=== PATIENT | male | born 1965 | race Caucasian/White ===

== ENCOUNTER → 2018-03-25 | Outpatient (CLI) | payer BC ==
--- NOTE | 2018-03-25 21:55 | MR ---
EXAMINATION TYPE: MR knee RT wo con DATE OF EXAM: 03/25/2018 COMPARISON: Outside radiograph 12/17/2017 and on MRI 09/19/2014 HISTORY: 53-year-old male Right knee pain TECHNIQUE: Multiplanar, multisequence imaging of the right knee is performed without IV contrast. FINDINGS: ACL, PCL, and MCL are intact. There is some increased fluid signal tracking along the myotendinous ju nction of the popliteus tendon but this appearance is unchanged from 09/19/2014. LCL complex is otherw ise intact. Extensive degenerative signal in both medial and lateral menisci are redemonstrated. Signal seems to extend to the articular surface along the posterior horn of the lateral meniscus, sagittal PD FS imag e 23, and at the junction of the posterior horn and body of the medial meniscus, sagittal PD FS image 6. However, this is only seen on single images. No displaced meniscal fragment. Mild to moderate irregular cartilage loss focally along the weightbearing posterior lateral tibial pl ateau, coronal PD FS image 23. Admission, very similar moderate to severe irregular cartilage loss along the inferior half of both m edial and lateral patellar facets and moderate irregular cartilage thinning along the inferior half. Trochlear articular cartilage is largely maintained Intermediate/borderline increased T2-TG distance of nearly 2 cm and congenital patella ramiro with anaya llar height ratio of 1.6 (normal <1.3). There is redemonstrated severe tendinosis of the quadriceps i nsertion with areas of complex partial thickness tearing of the middle third fibers. This overall tank earance is similar to 2015. No significant knee joint effusion. No Ghosh's cyst. Normal popliteal artery anatomy and muscle bulk. No suspicious bone marrow placement. IMPRESSION: 1. Moderate overall patellofemoral compartment osteoarthrosis with moderate to severe irregular carti sarah loss especially along the inferior half of the patella. Overall trochlear articular cartilage is maintained. Similar as compared to 2014. 2. Mild to moderate irregular cartilage loss focally along the posterior weightbearing aspect of the lateral tibial plateau. 3. Extensive degenerative signal within both menisci redemonstrated. An area along the posterior horn s of both menisci show signal extending to the articular surface only on one image and may represent small meniscal tears. No sizable tear or displaced meniscal fragment. 4. Moderate to severe insertional quadriceps tendinosis with partial-thickness tearing of the middle third fibers. This is relatively similar to 2015. 5. Similar interstitial tearing along the myotendinous junction of the popliteus. 6. Congenital puckett la ramiro and borderline increased TT-TG distance can contribute to patellar instability and patellar t racking disorder.
== END | disposition home or self-care (01) ==
LOC: RADMRIMAIN 06:14
PROVIDERS: ATTEND Orthopaedic Surgery
DX: M17.11 Unilateral primary osteoarthritis, right knee (principal); M94.8X6 Other specified disorders of cartilage, lower leg; M67.863 Other specified disorders of tendon, right knee; M22.2X1 Patellofemoral disorders, right knee

== ENCOUNTER → 2018-04-19 | Outpatient (CLI) | payer BC ==
[2018-04-19 15:28] LABS: Basophils % (A) 1 %; Eosinophils # (A) 0.1 k/uL (0-0.7); Eosinophils % (A) 2 %; HCT 44.2 % (39.0-53.0); HGB 14.6 gm/dL (13.0-17.5); Lymphocytes % (A) 30 %; MCH 30.1 pg (25.0-35.0); MCHC 33.1 g/dL (31.0-37.0); MCV 90.9 fL (80.0-100.0); Mean Platelet Volume 6.4; Monocytes # (A) 0.3 k/uL (0-1.0); Monocytes % (A) 5 %; Neutrophils # (A) 4.2 k/uL (1.3-7.7); Neutrophils % (A) 62 %; Platelet Count 243 k/uL (150-450); RBC 4.86 m/uL (4.30-5.90); RDW 12.9 % (11.5-15.5); WBC 6.8 k/uL (3.8-10.6)
[2018-04-19 15:34] LABS: Potassium 3.9 mmol/L (3.5-5.1)
== END | disposition home or self-care (01) ==
LOC: LABPAT 14:34
PROVIDERS: ATTEND Orthopaedic Surgery
DX: Z01.818 Encounter for other preprocedural examination (principal); Z01.812 Encounter for preprocedural laboratory examination; M23.91 Unspecified internal derangement of right knee
CPT/HCPCS: 36415; 80051; 85025; 93005

== ENCOUNTER 2018-04-23 09:28 | Day surgery (SDC) | payer BC ==
[2018-04-21 16:16] VITALS: BMI 34.7
--- NOTE | 2018-04-22 11:05 | HP ---
HISTORY AND PHYSICAL CHIEF COMPLAINT: Right knee pain. 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 It has worsened recently. He has tried medications along with an injection with only partial temporary relief. He does have intermittent giving way. He notes it does limit his activity and function. PAST MEDICAL HISTORY: Significant for hypertension. PAST SURGICAL HISTORY: Negative. CURRENT MEDICATIONS: Lisinopril. He denies drug allergies. FAMILY HISTORY: Significant for diabetes, cancer and heart disease. SOCIAL HISTORY: Significant for 1/2 pack per day tobacco use; however, he quit in 2010. REVIEW OF SYSTEMS: A 16 point review of systems otherwise reviewed and is noncontributory. PHYSICAL EXAMINATION: On examination, the patient is approximately 6 foot 3, 290 pounds of endomorphic habitus. HEENT exam is nonfocal. Neck is supple. He has painless passive motion of his right hip. Straight leg raise is negative, active motion right knee -8 to 130 degrees of flexion. He has a trace effusion. He is tender about the medial patellar facet and the medial joint line. Collaterals are stable, Yordan is negative, Saloni's elicits medial pain. His distal neurovascular exam otherwise appears to be intact in the right lower extremity. MRI report 03/25/2018 shows increased signal involving the posterior horn of the medial and lateral menisci, along with patellofemoral compartment osteoarthrosis. IMPRESSION: Right knee internal derangement with possible medial meniscal tear and possible patellar chondral injury. RECOMMENDATIONS: I talked to the patient at length regarding his condition and treatment options. At this point he is quite symptomatic, having pain and mechanical symptoms, despite conservative measures. After thorough discussion, he opts to proceed with surgery. We will plan to proceed with arthroscopic evaluation with possible partial medial meniscectomy in addition to possible patellar chondroplasty. Risks and benefits were discussed at length in layman's terms. We will likely perform that as an outpatient procedure. MMODL / IJN: [id number] /
[2018-04-23] MEDS ORDERED: LACTATED RINGERS 1,000 ML IV ONE ×2 (10:00→12:35)
[2018-04-23] MEDS ORDERED: ONDANSETRON 4 MG/2 ML VIAL IVP ONE (10:06)
[2018-04-23] MEDS ORDERED: DEXAMETHASONE SOD PHOSPHATE 10 MG/ML 1 ML VIAL IV ONE (10:07)
[2018-04-23] MEDS ORDERED: fentaNYL (PF) 50 MCG/ML 2 ML AMP ONE (11:06)
[2018-04-23] MEDS ORDERED: LIDOCAINE 1% INJ 10MG/ML (20 ML MDV) ONE (11:06)
[2018-04-23] MEDS ORDERED: ePHEDrine SULFATE/0.9% NACL/PF 50 MG/5 ML SYRINGE IV ONE (11:06)
[2018-04-23] MEDS ORDERED: PROPOFOL 10 MG/ML 20 ML VIAL IV ONE (11:06)
[2018-04-23] MEDS ORDERED: MIDAZOLAM 2 MG/2 ML VIAL ONE (11:06)
[2018-04-23] MEDS ORDERED: SUCCINYLCHOLINE CHLORIDE 100 MG/5 ML SYR IV ONE (11:06)
[2018-04-23] MEDS ORDERED: EPINEPHrine (PF) 1 ML in SODIUM CHLORIDE 0.9% IRRIGATIO 3,000 ML IRRIGATION ONE ×4 (11:28)
--- NOTE | 2018-04-23 11:48 | P.OP ---
Date of Procedure: 04/23/18 Preoperative Diagnosis: Right knee internal derangement Postoperative Diagnosis: Right knee posterior lateral meniscal tear/grade 2 chondral injury posterior medial aspect lateral tibial plateau/grade 3 chondral injury medial patella facet Procedure(s) Performed: Right knee arthroscopic partial lateral meniscectomy/lateral tibia chondrectomy/ patellar chondroplasty Anesthesia: SHAMA Surgeon: Raoul Loyola Estimated Blood Loss (ml): 10 Pathology: none sent Condition: stable Disposition: PACU Indications for Procedure: The patient's a 53-year-old male who presents with progressive right knee pain and mechanical symptoms despite conservative measures. A discussion of the risks and benefits of operative intervention versus continued conservative measures was made with the patient. He opted to proceed with surgery. Operative risks to include infection, neurovascular injury, development of blood clots, possible incomplete resolution of symptoms, possible worsening of symptoms and need for subsequent procedures was discussed. Informed consent was obtained. Operative Findings: As below Description of Procedure: The patient was brought to the operating room, and after induction of general anesthesia examined the right knee. Collaterals were stable, Yordan was negative, and posterior drawer was negative. The right lower extremity was prepped and draped in a normal fashion. A superior lateral portal was made through a 3 mm skin incision superior and lateral to the patella. This was used for outflow. A lateral portal was made through a 5 mm vertical skin incision lateral to the patella tendon above the joint line. Diagnostic arthroscopy was performed. On inspection of the medial compartment the medial meniscus appeared to be stable and intact. This was debrided back to stable base with straight baskets and a motorized shaver. On inspection of the notch, the anterior cruciate ligament appeared to be intact. On inspection of the lateral compartment[ and oblique tear of the posterior horn of the lateral meniscus in the white-white junction was noted. This was debrided back to stable base with straight baskets and a motorized shaver. The remaining lateral meniscus was stable and intact. Corresponding grade 2 chondral injury was noted involving the posterior medial aspect of the lateral tibial plateau. There was a loose chondral fragment debrided back to stable base with a motorized shaver. On inspection of the patellofemoral articulation[ a grade 3 chondral injury was noted involving the medial patella facet. There was a loose chondral fragment debrided back to stable base with a motorized shaver. Diffuse degenerative changes involving the patellofemoral articulation were noted. The gutters were clear debris. The knee was then thoroughly irrigated. The portals were closed with Steri-Strips. A sterile dressing was applied in addition to a compression stocking. The patient was awoken from general anesthesia and transferred to recovery room in good condition. Blood loss was estimated at 10 mL. No complications were incurred.
[2018-04-23] MEDS ORDERED: HYDROmorphone 0.5 MG/0.5 ML SYRINGE IVP ONE ×2 (12:00→12:05)
[2018-04-23 12:04] VITALS: TEMP 97
[2018-04-23] MEDS ORDERED: KETOROLAC 30 MG/ML 1 ML VIAL IVP ONE (12:06)
[2018-04-23 14:19] VITALS: BP 121/71; PULSE 73; RESP 18
== END 2018-04-23 14:42 | disposition home or self-care (01) ==
LOC: OR 09:28
PROVIDERS: ATTEND Orthopaedic Surgery
DX: S83.281A Other tear of lateral meniscus, current injury, right knee, initial encounter (principal); S83.31XA Tear of articular cartilage of right knee, current, initial encounter; X58.XXXA Exposure to other specified factors, initial encounter; I10 Essential (primary) hypertension; Z87.891 Personal history of nicotine dependence; K21.9 Gastro-esophageal reflux disease without esophagitis; Z79.899 Other long term (current) drug therapy
CPT/HCPCS: 29881; J2250; J1100; J0690; J2405; J0171; J2001; J3010; J1885; J0330; J2704; J1170

== ENCOUNTER → 2021-10-19 | Outpatient (CLI) | payer BC ==
[2021-10-19 16:34] LABS: ALT 35 U/L (10-49); AST 23 U/L (14-35); African American GFR (CKD) 97.1 (60.0-200.0); Albumin 4.6 g/dL (3.8-4.9); Albumin/Globulin Ratio 1.64 (1.60-3.17); Alkaline Phosphatase 68 U/L (41-126); Blood Urea Nitrogen 14.8 mg/dL (9.0-27.0); Calcium 10.2 mg/dL (8.7-10.3); Carbon Dioxide 28.3 mmol/L (20.0-27.5); Chloride 99 mmol/L (96-109); Chol/HDL Ratio 8.45 Ratio; Globulin 2.8 g/dL (1.6-3.3); Glucose 103 mg/dL (70-110); LDL Cholesterol,Calculated 186.8 mg/dL (0.0-131.0); Non-African American GFR(CKD) 83.8 (60.0-200.0); Potassium 4.8 mmol/L (3.5-5.5); Sodium 138 mmol/L (135-145); Total Protein 7.4 g/dL (6.2-8.2)
== END | disposition home or self-care (01) ==
LOC: LABWHC1 08:58
PROVIDERS: ATTEND Family Medicine
DX: E78.5 Hyperlipidemia, unspecified (principal)
CPT/HCPCS: 36415; 80053; 80061

== ENCOUNTER → 2022-10-15 | Outpatient (CLI) | payer BC ==
[2022-10-15 14:27] VITALS: BP 109/71; PULSE 61; RESP 18
--- NOTE | 2022-10-15 15:34 | P.PAINPG ---
PQRS Measure Charge Sheet Comment: HISTORY OF PRESENT ILLNESS: 57 yr old male w at side as a referral from Dr Talbert presents today w severe and chronic LBP secondary to DDD, spondylosis and facet arthropathy without myelopathy for evaluation. Pt states pain level is provoked at 7/10 in intensity, constant, localized in the L lower lumbar spine, dull in character w shooting pain towards the LLE. Pain is provoked by standing/ walking for periods of 10 min or more. Pain is alleviated by medications (Tyl, Aleve, Celebrex), heat, PT x 6 sessions in August 2022 which were stopped due to intense pain, chiropractic treatments x 5 sessions in 4 wks in Sep 2022, repositioning and rest. Oswestry axial pain score at 22. PMH: OA, HTN PSH: R Knee Arthroscopy (2018) SH: Negative x3. and lives w spouse and children. Currently employed. FH: Non contributory All: See list Meds: See list REVIEW OF ORGAN SYSTEMS: CONSTITUTIONAL: No fevers or chills. No recent weight loss. NEUROLOGICAL: + numbness and tingling along the distal extremities. No seizure disorders or headaches. MUSCULOSKELETAL: + pain PSYCHIATRIC: Denies current depression or suicidal thoughts. Physical Examinations : Constitutional : Cooperative , not in acute distress . Neurologic : Cranial nerve II to XII intact. No focal neurological deficits. Psychiatric : alert & oriented x 3. Matching mood & appropriate affect. Judgment & insight intact. Musculoskeletal : Cervical Spine Motor strength in the deltoid and biceps: Normal right side. Normal Left side Motor strength biceps and the wrist extensors: Normal right side . Normal left side Motor strength in the triceps muscle: Normal right side. Normal left side Deep tendon reflexes: Normal at the biceps. Normal at Brachioradialis. Normal at triceps Vertebral body tenderness to deep palpation over Cervical facet loading test: positive bilaterally Spurling test: positive bilaterally Neck distraction test: positive bilaterally Shaquille sign: positive bilaterally Lumbar spine Motor strength lower extremities ,thigh and legs 5/5 Right side , 5/5 Left side Deep tendon reflexes : Normal Knee Jerk. Normal Ankle Jerk Vertebral body tenderness over Askew Test positive Lumbar facet Loading Test: positive Right / positive Left at L4-L5, L5-S1 Range of motion of the lumbar spine Flexion 30 degrees, extension 10 degrees Straight Leg Raise test: Left/ Right positive at degree Fatou test: positive right / positive left. Severe tenderness over the Sacroiliac joint on the Right / Left sides Gaenslen test: positive bilaterally Seated flexion test: positive bilaterally. Sacral spine : Severe tenderness over the Sacroiliac joint: right side / left side Range of motion: Flexion of the lumbar spine <60 degrees Range of motion: Extension of the lumbar spine <20 degrees Gaenslen's Test positive Gregg's Test positive Fatou test: positive right side / left side Thigh Thrust Test Sacral Thrust Test Imaging: X ray of the lumbar spine from 09/12/22 reviewed Assessment/ Plan : Lumbar DDD Recommendation of MRI lumbar spine re: M51.36 and may follow up in 2-4 wks for a re evaluation. All questions answered. I have spent greater than 30 minutes on patient care today. Dr Alexander was available by phone for the evaluation of this patient. The time was used to review the medical records including relevant urine studies and Prescription history (MAPs), review of the available imaging, evaluation and examination of the patient, coordination of care with the medical staff and if applicable referring physicians, as well as creation of the medical record Home Medications: Ambulatory Orders Lisinopril-Hctz 20-12.5 mg [Zestoretic 20-12.5] 1 tab PO HS 04/21/18 Hydrocodone/Acetaminophen [[place] 7.5-325] 1 tab PO Q6HR PRN 7 Days #28 tab 04/23/18 Controlled Substance Measures - Controlled Substance Measures Is patient prescribed a controlled substance at discharge?: No
== END ==
LOC: PNWHC3 13:54
PROVIDERS: ATTEND Specialist
DX: M51.37 Other intervertebral disc degeneration, lumbosacral region (principal); M47.817 Spondylosis without myelopathy or radiculopathy, lumbosacral region; M19.90 Unspecified osteoarthritis, unspecified site; I10 Essential (primary) hypertension; Z87.891 Personal history of nicotine dependence; Z79.899 Other long term (current) drug therapy
CPT/HCPCS: 99211

== ENCOUNTER → 2022-10-30 | Outpatient (CLI) | payer BC ==
--- NOTE | 2022-10-31 08:40 | MR ---
EXAMINATION TYPE: MR lumbar spine wo con DATE OF EXAM: 10/30/2022 COMPARISON: None HISTORY: Back pain TECHNIQUE: Multiplanar, multisequence images of the lumbar spine were acquired without IV contrast. L1-L2: Normal disc appearance without desiccation. No herniation, protrusion or disc bulging. No ca nal stenosis is present. Foramina are patent bilaterally. L2-L3: Mild disc desiccation noted. No herniation, protrusion or disc bulging. No canal stenosis is present. Foramina are patent bilaterally. L3-L4: Mild disc desiccation and posterior disc bulge. Mild effacement ventral thecal sac. No evidenc e for disc herniation or central stenosis. Facet joint arthropathy with bilateral neural foraminal en croachment. L4-L5: Mild disc desiccation and posterior disc bulge. Mild effacement ventral thecal sac. No evidenc e for disc herniation or central stenosis. Facet joint arthropathy with bilateral neural foraminal en croachment. L5-S1: Mild disc desiccation and posterior disc bulge. Mild effacement ventral thecal sac. No evidenc e for disc herniation or central stenosis. Facet joint arthropathy with bilateral neural foraminal en croachment. Lumbar segments are intact. No paraspinal masses are identified. Conus medullaris has a normal appe arance. IMPRESSION: 1. Multilevel degenerative disc disease with disc bulging and neural foraminal encroachment.
== END | disposition home or self-care (01) ==
LOC: RADMRIMAIN 15:09
PROVIDERS: ATTEND Specialist
DX: M51.36 Other intervertebral disc degeneration, lumbar region (principal); M99.73 Connective tissue and disc stenosis of intervertebral foramina of lumbar region
CPT/HCPCS: 72148

== ENCOUNTER → 2022-11-13 | Outpatient (CLI) | payer BC ==
[2022-11-13 14:21] VITALS: BP 129/80; PULSE 95; RESP 15; TEMP 98.1
--- NOTE | 2022-11-13 14:35 | P.PAINPG ---
PQRS Measure Charge Sheet Comment: HISTORY OF PRESENT ILLNESS: 57 yr old male w at side presents today w severe and chronic LBP secondary to DDD, spondylosis and facet arthropathy without myelopathy for evaluation. Pt states pain level is provoked at 4/10 in intensity, constant, localized in the L lower lumbar spine, achy in character w shooting pain towards the LLE. Pain is provoked by standing/ walking for periods of 10 min or more. Pain is alleviated by medications, heat, PT x 6 sessions in August 2022 which were stopped due to intense pain, chiropractic treatments x 5 sessions in 4 wks in Sep 2022, repositioning and rest. Oswestry axial pain score at 18. Interventional procedures include DENIES Medications: Tyl, Aleve, Celebrex REVIEW OF ORGAN SYSTEMS: CONSTITUTIONAL: No fevers or chills. No recent weight loss. NEUROLOGICAL: + numbness and tingling along the distal extremities. No seizure disorders or headaches. MUSCULOSKELETAL: + pain PSYCHIATRIC: Denies current depression or suicidal thoughts. Physical Examinations : Constitutional : Cooperative , not in acute distress . Neurologic : Cranial nerve II to XII intact. No focal neurological deficits. Psychiatric : alert & oriented x 3. Matching mood & appropriate affect. Judgment & insight intact. Musculoskeletal : Cervical Spine Motor strength in the deltoid and biceps: Normal right side. Normal Left side Motor strength biceps and the wrist extensors: Normal right side . Normal left side Motor strength in the triceps muscle: Normal right side. Normal left side Deep tendon reflexes: Normal at the biceps. Normal at Brachioradialis. Normal at triceps Vertebral body tenderness to deep palpation over Cervical facet loading test: positive bilaterally Spurling test: positive bilaterally Neck distraction test: positive bilaterally Shaquille sign: positive bilaterally Lumbar spine Motor strength lower extremities ,thigh and legs 5/5 Right side , 5/5 Left side Deep tendon reflexes : Normal Knee Jerk. Normal Ankle Jerk Vertebral body tenderness over L4 Askew Test positive Lumbar facet Loading Test: positive Right / positive Left Range of motion of the lumbar spine Flexion 30 degrees, extension 10 degrees Straight Leg Raise test: Left/ Right positive at 35 degrees Fatou test: positive right / positive left. Severe tenderness over the Sacroiliac joint on the Right / Left sides Gaenslen test: positive bilaterally Seated flexion test: positive bilaterally. Sacral spine : Severe tenderness over the Sacroiliac joint: right side / left side Range of motion: Flexion of the lumbar spine <60 degrees Range of motion: Extension of the lumbar spine <20 degrees Gaenslen's Test positive Gregg's Test positive Fatou test: positive right side / left side Thigh Thrust Test Sacral Thrust Test Imaging: MRI non contrast of the lumbar spine from 10/30/22 reviewed Assessment/ Plan : Lumbar DDD Recommendation of ALFRED L4-L5 #1. May need a series of injections for optimal pain relief. Risks, benefits of procedure discussed and patient verbalized understanding. Protocol for discontinuation/continuation of medications surrounding procedure discussed. All questions answered. I have spent greater than 30 minutes on patient care today. Dr Alexander was available by phone for the evaluation of this patient. The time was used to review the medical records including relevant urine studies and Prescription history (MAPs), review of the available imaging, evaluation and examination of the patient, coordination of care with the medical staff and if applicable referring physicians, as well as creation of the medical record PQRS Narrative: Hx Alcohol Use (MH) No Home Medications: Ambulatory Orders Lisinopril-Hctz 20-12.5 mg [Zestoretic 20-12.5] 1 tab PO HS 04/21/18 Hydrocodone/Acetaminophen [[place] 7.5-325] 1 tab PO Q6HR PRN 7 Days #28 tab 04/23/18 Controlled Substance Measures - Controlled Substance Measures Is patient prescribed a controlled substance at discharge?: No
== END ==
LOC: PNWHC3 13:45
PROVIDERS: ATTEND Specialist
DX: M51.36 Other intervertebral disc degeneration, lumbar region (principal); Z87.891 Personal history of nicotine dependence
CPT/HCPCS: 99211

== ENCOUNTER → 2022-12-02 | Day surgery (SDC) | payer BC ==
[~2022-12-02] MED LIST: IOPAMIDOL M200 10 ML VIAL ONE; LACTATED RINGERS 1,000 ML IV SCH; methylPREDNISolone ACETATE 80 MG/ML 1 ML VIAL ONE
[2022-12-02 07:02] VITALS: TEMP 97.2
--- NOTE | 2022-12-02 07:28 | P.PCN ---
Date of Procedure: 12/02/22 Procedure(s) Performed: PREOPERATIVE DIAGNOSIS: 1- Lumbar Degenerative Disc Diseases 2-Lumbar spondylosis with Facet arthropathy without myelopathy. 3-lumbar spinal stenosis POSTOPERATIVE DIAGNOSIS: 1-lumbar degenerative disc disease. 2-lumbar spondylosis with facet arthropathy without myelopathy. 3-lumbar spinal stenosis. PROCEDURE 1. Lumbar epidural steroid injection under fluoroscopic guidance at the L4-5 level. (Fluoroscopy imaging was available in radiology department) 2. Lumbar epidurogram. ANESTHESIA: Lidocaine 1% 3 and then only. EBL: Minimal PROCEDURE INDICATION: The patient with low back pain and radiculitis symptoms unresponsive to conservative treatment. Fluoroscopy was used to optimize visualization of the needle placement and to maximize safety. PROCEDURE DESCRIPTION / TECHNIQUE: The patient was seen and identified in the preoperative area. Risks, benefits, complications including but not limited to infections ,bleeding ,allergic reaction to the medications ,nerve damage and not complete pain releife , and alternatives were discussed with the patient. The patient agreed to proceed with the procedure and signed the consent, and vital signs were stable. Patient was taken to the OR and time out was completed. The patient was placed in the prone position on procedure table and a pillow was placed under the abdomen to reduce lumbar lordosis. The lumbosacral area was prepped and draped in the usual sterile fashion.ere closely monitored during the procedure. Vital signs was monitered during the entire procedure. Using anterior-posterior fluoroscopy, the L4-5 interlaminar space was identified and the skin over this site was marked and then infiltrated with 1% lidocaine subcutaneously. Subsequently, a 20-gauge Tuohy epidural needle was inserted and advanced toward the epidural space using the ``Loss of resistance technique and guided by AP and lateral fluoroscopy. The correct needle position in the epidural space was verified with the injection of 2 mL of the water soluble contrast dye Isovue 200 contrast and observing an excellent epidurogram with the epidural spread of the dye, after negative aspiration for blood and CSF and in the absence of paresthesias. Again after negative aspiration, a 6 ml mixture containing 80 mg of Depo-medrol ( Preservetive Free ), and 2 ml of preservative free Normal Saline, and 2 ml of preservative free lidocaine 1% solution was injected and a washout of epidurogram was seen. Needle was withdrawn intact, skin was cleansed, and bandages were applied. COMPLICATIONS: None DISPOSITION / PLANS: The patient was placed in a supine position and transferred to the recovery area in a stable condition for observation. There was no evidence of lower extremity motor or sensory deficit after the procedure. Patient was discharged from the recovery room after meeting discharge criteria. Home discharge instructions were given to the patient by the staff. The patient was reexamined prior to discharge. The patient will schedule a follow up in the clinic in 2-4 weeks.
[2022-12-02 07:47] VITALS: BP 116/73; PULSE 60; RESP 14
--- NOTE | 2022-12-02 07:50 | FL ---
Fluoroscopy History: LUMBAR RADICULOPATHY lesi in pain services. fl time 3 secs dap [id number]
== END ==
LOC: ORPAIN 06:16
PROVIDERS: ATTEND Specialist
DX: M51.16 Intervertebral disc disorders with radiculopathy, lumbar region (principal); M47.26 Other spondylosis with radiculopathy, lumbar region; M48.061 Spinal stenosis, lumbar region without neurogenic claudication; Z79.899 Other long term (current) drug therapy
CPT/HCPCS: 62323; J1040; Q9966

== ENCOUNTER → 2023-01-12 | Outpatient (CLI) | payer BC ==
[2023-01-12 14:45] VITALS: BP 134/89; PULSE 95; RESP 15; TEMP 98.2
--- NOTE | 2023-01-12 14:48 | P.PAINPG ---
PQRS Measure Charge Sheet Comment: HISTORY OF PRESENT ILLNESS: 57 yr old male w at side presents today w severe and chronic LBP secondary to DDD, spondylosis and facet arthropathy without myelopathy for evaluation s/p ALFRED L4-L5 #1. Pt states he experienced 0 % pain relief x 6 wks s/p procedure. Pt states pain level is provoked at 9/10 in intensity, constant, localized in the L lower lumbar spine, achy in character w shooting pain towards the LLE. Pain is provoked by standing/ walking for periods of 10 min or more. Pain is alleviated by medications, heat, PT x 6 sessions in August 2022 which were stopped due to intense pain, chiropractic treatments x 5 sessions in 4 wks in Sep 2022, repositioning and rest. Oswestry axial pain score at 18. Interventional procedures include ALFRED L4-L5 x1 Medications: Tyl, Aleve, Celebrex REVIEW OF ORGAN SYSTEMS: CONSTITUTIONAL: No fevers or chills. No recent weight loss. NEUROLOGICAL: + numbness and tingling along the distal extremities. No seizure disorders or headaches. MUSCULOSKELETAL: + pain PSYCHIATRIC: Denies current depression or suicidal thoughts. Physical Examinations : Constitutional : Cooperative , not in acute distress . Neurologic : Cranial nerve II to XII intact. No focal neurological deficits. Psychiatric : alert & oriented x 3. Matching mood & appropriate affect. Judgment & insight intact. Musculoskeletal : Cervical Spine Motor strength in the deltoid and biceps: Normal right side. Normal Left side Motor strength biceps and the wrist extensors: Normal right side . Normal left side Motor strength in the triceps muscle: Normal right side. Normal left side Deep tendon reflexes: Normal at the biceps. Normal at Brachioradialis. Normal at triceps Vertebral body tenderness to deep palpation over Cervical facet loading test: positive bilaterally Spurling test: positive bilaterally Neck distraction test: positive bilaterally Shaquille sign: positive bilaterally Lumbar spine Motor strength lower extremities ,thigh and legs 5/5 Right side , 5/5 Left side Deep tendon reflexes : Normal Knee Jerk. Normal Ankle Jerk Vertebral body tenderness over L4 Askew Test positive Lumbar facet Loading Test: positive Right / positive Left over BL L4-L5, L5-S1 Range of motion of the lumbar spine Flexion 30 degrees, extension 10 degrees Straight Leg Raise test: Left/ Right positive at 35 degrees Fatou test: positive right / positive left. Severe tenderness over the Sacroiliac joint on the Right / Left sides Gaenslen test: positive bilaterally Seated flexion test: positive bilaterally. Sacral spine : Severe tenderness over the Sacroiliac joint: right side / left side Range of motion: Flexion of the lumbar spine <60 degrees Range of motion: Extension of the lumbar spine <20 degrees Gaenslen's Test positive Gregg's Test positive Fatou test: positive right side / left side Thigh Thrust Test Sacral Thrust Test Imaging: MRI non contrast of the lumbar spine from 10/30/22 reviewed Assessment/ Plan : Lumbar DDD Recommendation of BL MBB L3-L5 #1. May need a series of injections, up until RFA, for optimal pain relief. Risks, benefits of procedure discussed and patient verbalized understanding. Protocol for discontinuation/continuation of medications surrounding procedure discussed. All questions answered. I have spent greater than 30 minutes on patient care today. Dr Alexander was available by phone for the evaluation of this patient. The time was used to review the medical records including relevant urine studies and Prescription his tory (MAPs), review of the available imaging, evaluation and examination of the patient, coordination of care with the medical staff and if applicable referring physicians, as well as creation of the medical record PQRS Narrative: Hx Alcohol Use (MH) No Home Medications: Ambulatory Orders Lisinopril-Hctz 20-12.5 mg [Zestoretic 20-12.5] 1 tab PO HS 04/21/18 Celecoxib [CeleBREX] 200 mg PO DAILY 11/27/22 Controlled Substance Measures - Controlled Substance Measures Is patient prescribed a controlled substance at discharge?: No
== END ==
LOC: PNWHC3 13:49
PROVIDERS: ATTEND Specialist
DX: M51.37 Other intervertebral disc degeneration, lumbosacral region (principal); Z91.09 Other allergy status, other than to drugs and biological substances; Z87.891 Personal history of nicotine dependence
CPT/HCPCS: 99211

== ENCOUNTER → 2023-02-05 | Outpatient (CLI) | payer BC ==
--- NOTE | 2023-02-05 14:28 | P.PAINPG ---
PQRS Measure Charge Sheet Comment: HISTORY OF PRESENT ILLNESS: 57 yr old male w at side presents today w severe and chronic LBP secondary to DDD, spondylosis and facet arthropathy without myelopathy for evaluation s/p BL MBB L4-L5/ L5-S1 #1. Pt states he experienced 100 % pain relief x 1 days s/p procedure. Pt states pain level is provoked at 6/10 in intensity, constant, localized in the L lower lumbar spine, achy in character w shooting pain towards the LLE. Pain is provoked by standing/ walking for periods of 10 min or more. Pain is alleviated by medications, heat, PT x 6 sessions in August 2022 which were stopped due to intense pain, chiropractic treatments x 5 sessions in 4 wks in Sep 2022, repositioning and rest. Oswestry axial pain score at 17. Interventional procedures include ALFRED L4-L5 x1 Medications: Tyl, Aleve, Celebrex REVIEW OF ORGAN SYSTEMS: CONSTITUTIONAL: No fevers or chills. No recent weight loss. NEUROLOGICAL: + numbness and tingling along the distal extremities. No seizure disorders or headaches. MUSCULOSKELETAL: + pain PSYCHIATRIC: Denies current depression or suicidal thoughts. Physical Examinations : Constitutional : Cooperative , not in acute distress . Neurologic : Cranial nerve II to XII intact. No focal neurological deficits. Psychiatric : alert & oriented x 3. Matching mood & appropriate affect. Judgment & insight intact. Musculoskeletal : Cervical Spine Motor strength in the deltoid and biceps: Normal right side. Normal Left side Motor strength biceps and the wrist extensors: Normal right side . Normal left side Motor strength in the triceps muscle: Normal right side. Normal left side Deep tendon reflexes: Normal at the biceps. Normal at Brachioradialis. Normal at triceps Vertebral body tenderness to deep palpation over Cervical facet loading test: positive bilaterally Spurling test: positive bilaterally Neck distraction test: positive bilaterally Shaquille sign: positive bilaterally Lumbar spine Motor strength lower extremities ,thigh and legs 5/5 Right side , 5/5 Left side Deep tendon reflexes : Normal Knee Jerk. Normal Ankle Jerk Vertebral body tenderness over L4 Askew Test positive Lumbar facet Loading Test: positive Right / positive Left over BL L4-L5, L5-S1 Range of motion of the lumbar spine Flexion 30 degrees, extension 10 degrees Straight Leg Raise test: Left/ Right positive at 35 degrees Fatou test: positive right / positive left. Severe tenderness over the Sacroiliac joint on the Right / Left sides Gaenslen test: positive bilaterally Seated flexion test: positive bilaterally. Sacral spine : Severe tenderness over the Sacroiliac joint: right side / left side Range of motion: Flexion of the lumbar spine <60 degrees Range of motion: Extension of the lumbar spine <20 degrees Gaenslen's Test positive Gregg's Test positive Fatou test: positive right side / left side Thigh Thrust Test Sacral Thrust Test Imaging: MRI non contrast of the lumbar spine from 10/30/22 reviewed Assessment/ Plan : Lumbar DDD Recommendation of BL MBB L4-L5/ L5-S1 #2. May need a series of injections, up until RFA, for optimal pain relief. Risks, benefits of procedure discussed and patient verbalized understanding. Protocol for discontinuation/continuation of medications surrounding procedure discussed. All questions answered. I have spent greater than 30 minutes on patient care today. Dr Alexander was available by phone for the evaluation of this patient. The time was used to review the medical records including relevant urine studies and Prescription history (MAPs), review of the available imaging, evaluation and examination of the patient, coordination of care with the medical staff and if applicable referring physicians, as well as creation of the medical record PQRS Narrative: Hx Alcohol Use (MH) No Home Medications: Ambulatory Orders Lisinopril-Hctz 20-12.5 mg [Zestoretic 20-12.5] 1 tab PO HS 04/21/18 Celecoxib [CeleBREX] 200 mg PO DAILY 11/27/22 Controlled Substance Measures - Controlled Substance Measures Is patient prescribed a controlled substance at discharge?: No
[2023-02-05 14:35] VITALS: BP 160/90; PULSE 66; RESP 15; TEMP 97.2
== END ==
LOC: PNWHC3 13:41
PROVIDERS: ATTEND Specialist
DX: M51.37 Other intervertebral disc degeneration, lumbosacral region (principal); Z91.09 Other allergy status, other than to drugs and biological substances; Z87.891 Personal history of nicotine dependence
CPT/HCPCS: 99211

== ENCOUNTER 2023-02-10 11:22 | Day surgery (SDC) | payer BC ==
[~2023-02-10 11:22] MED LIST changes: -IOPAMIDOL M200 10 ML VIAL ONE; -methylPREDNISolone ACETATE 80 MG/ML 1 ML VIAL ONE
[2023-02-10] MEDS ORDERED: LIDOCAINE 1% (10MG/ML) FOR IV START INTRADERMA ONE (12:02)
[2023-02-10 12:21] VITALS: PULSE 67; RESP 16; TEMP 97.3
[2023-02-10] MEDS ORDERED: MIDAZOLAM 2 MG/2 ML VIAL ONE (12:27)
[2023-02-10] MEDS ORDERED: ROPIVACAINE 5MG/ML 20ML VIAL ONE (12:27)
[2023-02-10] MEDS ORDERED: IV FLUID CONTINUATION 1,000 ML IV ONE (12:45)
--- NOTE | 2023-02-10 12:46 | P.PCN ---
Date of Procedure: 02/10/23 Description of Procedure: PREOPERATIVE DIAGNOSIS : 1- Lumbar spondylosis with Facet Arthropathy without myelopathy . 2- Lumber degenerative disc disease POSTOPERATIVE DIAGNOSIS: 1- Lumbar spondylosis with Facet Arthropathy without myelopathy . 2- Lumber degenerative disc disease PROCEDURE: Diagnostic bilateral L3 , L4 , and L5 medial branch block under fluoroscopy guidance(fluoroscopy images available in the radiology Department ) ( To target the facet joint between Bilateral L4-5 , and L5-S1 ) #2 ANESTHESIA:, Nurse sedation per RN. Anesthesia supervision time 1127 - EBL: Minimal COMPLICATION: None PROCEDURE INDICATION: Chronic low back pain secondary to Facet arthropathy unresponsive to conservative treatment. PROCEDURE DESCRIPTION: the patient was seen and identified in the preop holding area , risks and benefits and possible complications of the procedure and alternative were discussed with the patient, and the patient agreed to proceed with the procedure and signed the consent and vital signs monitored during the procedure and fluoroscopy was used to maximize the benefit and accuracy of the needle placement, and sedation was given to decrease patient anxiety, patient was taken to the procedure room and placed in prone position vital signs monitored in the back prepped with chlorhexidine X3 then under strict sterile technique using a right oblique fluoroscopy ,the junction of the transverse process and the superior articulating process of the right L3 , L4 , and L5 vertebra which corresponding to the fluoroscopy image of the eye of the Derrick dog on the block side for the medial branches and subsequently , after local infiltration of skin and subcu tissuies with Ropivacaine 0.5 % , one mL at each level ,then 25-gauge 5 inch Quincke-type needles , 3 needle was used , each one of them placed at the junction of the base of the transverse process and the superior articular process at the appropriate level, and the needle was advanced until the periosteum contacted, needle placement confirmed with AP oblique and lateral view and after appropriate needle placement confirmed, and after negative aspiration for heme and CSF and there was no paresthesia 1-1/2 mL of Ropivacaine 0.5% after negative aspiration the needle subsequently removed and the same procedure repeated for the left side at left side at L3 , L4 and L5 levels. At the end of the procedure and the needles removed and a bandage applied after the skin was cleaned the cleaning solution patient taken to recovery room in stable condition and monitors in the recovery room for 20-30 minutes and discharged home in stable condition after discharge criteria met and patient will follow up with the pain clinic in 2-4 weeks
[2023-02-10 13:09] VITALS: BP 129/78
--- NOTE | 2023-02-10 13:27 | FL ---
Intraoperative/procedural fluoroscopic services were provided. Total fluoroscopy time is 14.2 seconds with a total of 6 submitted images to PACS. Please see the operative/procedural note for further det ails. DAP: 0.6724 Gycm2
== END 2023-02-10 13:20 | disposition home or self-care (01) ==
LOC: ORPAIN 11:22
PROVIDERS: ATTEND Specialist
DX: M51.36 Other intervertebral disc degeneration, lumbar region (principal); M47.816 Spondylosis without myelopathy or radiculopathy, lumbar region; G89.29 Other chronic pain; F41.9 Anxiety disorder, unspecified; Z77.120 Contact with and (suspected) exposure to mold (toxic)

== ENCOUNTER → 2023-02-25 | Outpatient (CLI) | payer BC ==
[2023-02-25 14:45] VITALS: BP 153/68; PULSE 68; RESP 16
--- NOTE | 2023-02-25 15:06 | P.PAINPG ---
PQRS Measure Charge Sheet Comment: HISTORY OF PRESENT ILLNESS: 57 yr old male w at side presents today w severe and chronic LBP secondary to DDD, spondylosis and facet arthropathy without myelopathy for evaluation s/p BL MBB L4-L5/ L5-S1 #2. Pt states he experienced 100 % pain relief x 1/2 day s/p procedure. Pt states pain level is provoked at 8/10 in intensity, constant, predominantly axial, localized in the L lower lumbar spine, achy in character w occasional shooting pain towards the LLE. Pain is provoked by standing/ walking for periods of 10 min or more. Pain is alleviated by medications, heat, PT x 6 sessions in August 2022 which were stopped due to intense pain, chiropractic treatments x 5 sessions in 4 wks in Sep 2022, repositioning and rest. Oswestry axial pain score at 16. Interventional procedures include ALFRED L4-L5 x1, BL MBB L3-L5 x2 Medications: Tyl, Aleve, Celebrex REVIEW OF ORGAN SYSTEMS: CONSTITUTIONAL: No fevers or chills. No recent weight loss. NEUROLOGICAL: + numbness and tingling along the distal extremities. No seizure disorders or headaches. MUSCULOSKELETAL: + pain PSYCHIATRIC: Denies current depression or suicidal thoughts. Physical Examinations : Constitutional : Cooperative , not in acute distress . Neurologic : Cranial nerve II to XII intact. No focal neurological deficits. Psychiatric : alert & oriented x 3. Matching mood & appropriate affect. Judgment & insight intact. Musculoskeletal : Cervical Spine Motor strength in the deltoid and biceps: Normal right side. Normal Left side Motor strength biceps and the wrist extensors: Normal right side . Normal left side Motor strength in the triceps muscle: Normal right side. Normal left side Deep tendon reflexes: Normal at the biceps. Normal at Brachioradialis. Normal at triceps Vertebral body tenderness to deep palpation over Cervical facet loading test: positive bilaterally Spurling test: positive bilaterally Neck distraction test: positive bilaterally Shaquille sign: positive bilaterally Lumbar spine Motor strength lower extremities ,thigh and legs 5/5 Right side , 5/5 Left side Deep tendon reflexes : Normal Knee Jerk. Normal Ankle Jerk Vertebral body tenderness over L4 Askew Test positive Lumbar facet Loading Test: positive Right / positive Left over BL L4-L5, L5-S1 Range of motion of the lumbar spine Flexion 30 degrees, extension 10 degrees Straight Leg Raise test: Left/ Right positive at 35 degrees Fatou test: positive right / positive left. Severe tenderness over the Sacroiliac joint on the Right / Left sides Gaenslen test: positive bilaterally Seated flexion test: positive bilaterally. Sacral spine : Severe tenderness over the Sacroiliac joint: right side / left side Range of motion: Flexion of the lumbar spine <60 degrees Range of motion: Extension of the lumbar spine <20 degrees Gaenslen's Test positive Gregg's Test positive Fatou test: positive right side / left side Thigh Thrust Test Sacral Thrust Test Imaging: MRI non contrast of the lumbar spine from 10/30/22 reviewed Assessment/ Plan : Lumbar DDD Recommendation of BL RFA L4-L5/ L5-S1. Exhibited optimal pain relief w prior MBB procedures. Risks, benefits of procedure discussed and patient verbalized understanding. Protocol for discontinuation/continuation of medications surrounding procedure discussed. All questions answered. I have spent greater than 30 minutes on patient care today. Dr Alexander was available by phone for the evaluation of this patient. The time was used to review the medical records including relevant urine studies and Prescription history (MAPs), review of the available imaging, evaluation and examination of the patient, coordination of care with the medical staff and if applicable r eferring physicians, as well as creation of the medical record PQRS Narrative: Hx Alcohol Use (MH) No Home Medications: Ambulatory Orders Lisinopril-Hctz 20-12.5 mg [Zestoretic 20-12.5] 1 tab PO HS 04/21/18 Celecoxib [CeleBREX] 200 mg PO DAILY 11/27/22 Controlled Substance Measures - Controlled Substance Measures Is patient prescribed a controlled substance at discharge?: No
== END ==
LOC: PNWHC3 13:53
PROVIDERS: ATTEND Specialist
DX: M51.37 Other intervertebral disc degeneration, lumbosacral region (principal); Z91.09 Other allergy status, other than to drugs and biological substances; Z87.891 Personal history of nicotine dependence
CPT/HCPCS: 99211

== ENCOUNTER 2023-05-01 06:38 | Day surgery (SDC) | payer BC ==
[2023-04-24 17:38] VITALS: BMI 36.6
[2023-05-01 07:22] VITALS: TEMP 97.5
[2023-05-01] MEDS ORDERED: fentaNYL (PF) 50 MCG/ML 2 ML AMP ONE (07:30)
[2023-05-01] MEDS ORDERED: MIDAZOLAM 2 MG/2 ML VIAL ONE (07:30)
[2023-05-01] MEDS ORDERED: ROPIVACAINE 5MG/ML 20ML VIAL ONE (07:33)
[2023-05-01] MEDS ORDERED: IV FLUID CONTINUATION 1,000 ML IV ONE (08:14)
--- NOTE | 2023-05-01 08:20 | P.PCN ---
Description of Procedure: Preprocedure diagnosis. 1. Lumbar spondylosis with facet joint arthropathy without myelopathy. 2. Lumbar degenerative disc disease. Procedure diagnosis. 1. Lumbar spondylosis with facet joint arthropathy without myelopathy. Space 2. Lumbar degenerative disc disease. Procedure.Bilateral radiofrequency thermocoagulation L3, L4 and L5 medial branch, with fluoroscopic guidance (fluoroscopy images are available in the radiology department) (to Denervate the facet joint at bilateral L4 5 and L5-S1 levels) Anesthesia. Monitored anesthesia care as per anesthesia department. In OR, continuous pulse ox, blood pressure, EKG and verbal communication was maintained. EBL minimal. Procedure indication. The patient with low back pain secondary to lumbar facet arthropathy who he had more than 50% relief of her pain with previous diagnostic lumbar medial branch block with local anesthetics. Discussed with the patient about the procedure, alternative treatment, possible complications which may include infection, bleeding, nerve damage, aggravation of pain, all of which could be permanent. Patient understands, all questions were answered. Patient signed consent and agreed to proceed with the procedure. Procedure description/technique. After getting consent, patient was taken to the OR and in prone position. The lumbar area was prepped and draped in the usual sterile fashion. After injecting 5 mL of plain 1% lidocaine subcutaneously, a 18-gauge 100 mm radiofrequency cannula with a 10 mm active tip was introduced under tunnel vision of the fluoroscope at the junction of the superior articular process with RIGHT ala of the sacrum. With slight oblique fluoroscope, after injecting 5 mL of plain 1% lidocaine subcutaneously, a 18- gauge 100 mm radiofrequency cannula with a 10 mm active tip was introduced under tunnel vision of the fluoroscope at the junction of the superior articular process with L5 transverse process and junction of the superior articular process with the L4 transverse process Each site then underwent sensory testing with 50 Hz and 0-1 V and motor testing at 2.5 Hz and 0-3 V with local stimulation but no radicular symptoms down the leg. Thereafter each sites underwent radiofrequency thermocoagulation at 80C for 90 seconds after injecting 1 mL of preservative-free 0.5% ropivacaine. Repeat radiofrequency ablation was done at each points after rotating the needle 180 with same setting . In exactly same way, LEFT sided RFA were done at the following 3 points. Junction of the superior articular process with left ala of the sacrum, junction of the superior articular process with the left L5 transverse process, junction of the superior articular process with left L4 transverse process after needle position confirmation by AP, oblique, lateral view of the fluoroscope, negative CSF negative blood negative paresthesia, sensory and motor stimulations followed by injection of 1 mL of 0.5% ropivacaine. Radiofrequency ablation settings where same as the other side, and second lesion was done after rotating the needle 180. RF needles were taken out. At the end of the procedure the skin was cleansed and Band-Aids were applied. Disposition . Patient tolerated the procedure well. No complication. She was placed in supine position and transferred to the recovery area in stable condition for observation and was discharged home from recovery room after meeting discharge criteria. Discharge instructions given to the patient by the staff. The patient were examined prior to discharge the patient will schedule a follow-up in the clinic in 2-4 weeks.
[2023-05-01 08:40] VITALS: BP 136/82; PULSE 58; RESP 16
--- NOTE | 2023-05-01 08:40 | FL ---
EXAMINATION TYPE: FL guided pain mgmt statistic DATE OF EXAM: 05/01/2023 Comparison: 02/10/2023 FLUOROSCOPY Fluoroscopy time of 57 seconds was used during bilateral lumbar facet radiofrequency ablation. 4 tereso ge/s document/s the procedure. 0.01524 Gycm2 DAP
== END 2023-05-01 08:58 | disposition home or self-care (01) ==
LOC: ORPAIN 06:38
PROVIDERS: ATTEND Pain Medicine Interventional Pain Medicine
DX: M51.36 Other intervertebral disc degeneration, lumbar region (principal); M47.816 Spondylosis without myelopathy or radiculopathy, lumbar region; I10 Essential (primary) hypertension; K21.9 Gastro-esophageal reflux disease without esophagitis; F17.200 Nicotine dependence, unspecified, uncomplicated; Z90.89 Acquired absence of other organs; Z79.899 Other long term (current) drug therapy; Z98.890 Other specified postprocedural states
CPT/HCPCS: 64635; 64636 ×2; J2250; J3010; J2795

== ENCOUNTER → 2023-06-08 | Outpatient (CLI) | payer BC ==
[2023-06-08 14:52] VITALS: BP 163/82; PULSE 99; RESP 15; TEMP 98.7
--- NOTE | 2023-06-08 14:57 | P.PAINPG ---
PQRS Measure Charge Sheet Comment: HISTORY OF PRESENT ILLNESS: A 58 yr old male w at side presents today w severe and chronic LBP secondary to DDD, spondylosis and facet arthropathy without myelopathy for evaluation s/p BL RFA L4-L5/ L5-S1. Pt states he experienced 60 % pain relief s/p procedure. Pt states pain level is provoked at 8/10 in intensity, constant, predominantly axial, localized in the L lower lumbar spine, achy in character w occasional shooting pain towards the BL buttocks L > R. Pain is provoked by sitting for periods > 10 min. Pain is alleviated by medications, heat, PT x 6 sessions in August 2022 which were stopped due to intense pain, chiropractic treatments x 5 sessions in 4 wks in Sep 2022, repositioning and rest. Oswestry axial pain score at 15. Interventional procedures include ALFRED L4-L5 x1, BL RFA L3-L5 (Apr 2023) Medications: Tyl, Aleve, Celebrex REVIEW OF ORGAN SYSTEMS: CONSTITUTIONAL: No fevers or chills. No recent weight loss. NEUROLOGICAL: + numbness and tingling along the distal extremities. No seizure disorders or headaches. MUSCULOSKELETAL: + pain PSYCHIATRIC: Denies current depression or suicidal thoughts. Physical Examinations : Constitutional : Cooperative , not in acute distress . Neurologic : Cranial nerve II to XII intact. No focal neurological deficits. Psychiatric : alert & oriented x 3. Matching mood & appropriate affect. Judgment & insight intact. Musculoskeletal : Cervical Spine Motor strength in the deltoid and biceps: Normal right side. Normal Left side Motor strength biceps and the wrist extensors: Normal right side . Normal left side Motor strength in the triceps muscle: Normal right side. Normal left side Deep tendon reflexes: Normal at the biceps. Normal at Brachioradialis. Normal at triceps Vertebral body tenderness to deep palpation over Cervical facet loading test: positive bilaterally Spurling test: positive bilaterally Neck distraction test: positive bilaterally Shaquille sign: positive bilaterally Lumbar spine Motor strength lower extremities ,thigh and legs 5/5 Right side , 5/5 Left side Deep tendon reflexes : Normal Knee Jerk. Normal Ankle Jerk Vertebral body tenderness over L4 Askew Test positive Lumbar facet Loading Test: positive Right / positive Left Range of motion of the lumbar spine Flexion 30 degrees, extension 10 degrees Straight Leg Raise test: Left/ Right positive at 35 degrees Fatou test: positive right / positive left. Severe tenderness over the Sacroiliac joint on the Right / Left sides Gaenslen test: positive bilaterally Seated flexion test: positive bilaterally. Sacral spine : Severe tenderness over the Sacroiliac joint: right side / left side Range of motion: Flexion of the lumbar spine <60 degrees Range of motion: Extension of the lumbar spine <20 degrees Gaenslen's Test positive BL Fatou test: positive right side < left side Thigh Thrust Test L positive Sacral Thrust Test BL positive Imaging: MRI non contrast of the lumbar spine from 10/30/22 reviewed Assessment/ Plan : Lumbar DDD Recommendation of BL SI injection #1. May need a series of injections for optimal pain relief. Risks, benefits of procedure discussed and patient verbalized understanding. Protocol for discontinuation/continuation of medications surrounding procedure discussed. All questions answered. I have spent greater than 30 minutes on patient care today. Dr Alexander was available by phone for the evaluation of this patient. The time was used to review the medical records including relevant urine studies and Prescription history (MAPs), review of the available imaging, evaluation and examination of the patient, coordination of care with the medical staff and if applicable referring physicians, as well as creation of the medical record PQRS Narrative: Hx Alcohol Use (MH) No Home Medications: Ambulatory Orders Lisinopril-Hctz 20-12.5 mg [Zestoretic 20-12.5] 1 tab PO HS 04/21/18 Celecoxib [CeleBREX] 200 mg PO DAILY 11/27/22 Controlled Substance Measures - Controlled Substance Measures Is patient prescribed a controlled substance at discharge?: No
== END | disposition home or self-care (01) ==
LOC: PNWHC3 14:13
PROVIDERS: ATTEND Specialist
DX: M46.1 Sacroiliitis, not elsewhere classified (principal); M51.36 Other intervertebral disc degeneration, lumbar region; Z91.048 Other nonmedicinal substance allergy status; Z87.891 Personal history of nicotine dependence
CPT/HCPCS: 99211

== ENCOUNTER → 2023-06-16 | Day surgery (SDC) | payer BC ==
[2023-06-11 15:47] VITALS: BMI 35.9
[~2023-06-16] MED LIST changes: +IOPAMIDOL M300 15ML VIAL ONE; +ROPIVACAINE 5MG/ML 20ML VIAL ONE; +methylPREDNISolone ACETATE 80 MG/ML 1 ML VIAL ONE
--- NOTE | 2023-06-16 07:51 | P.PCN ---
Description of Procedure: Preprocedure diagnosis. Sacroiliac joint arthropathy. Postprocedure diagnosis. As above. Procedure done. Injection of the radio contrast material into bilateral sacroiliac joint, sacroiliac joint arthrogram, interpretation of arthrogram. Bilateral sacroiliac joint injection with local anesthetics and steroid under fluoroscopic guidance. Anesthesia. Local anesthetic infiltration. As per anesthesia department. Continuous EKG, pulse ox, blood pressure, and verbal communication was maintained with the patient in OR. Blood loss. Minimal. Indication. Sacroiliac joint arthropathy. Discussed the procedure, alternatives, complications which may include infection,bleeding, nerve damage, aggravation of pain which could be permanent. Patient understands and questions were answered. Procedure note. After getting consent patient in OR in prone position. Back prepped with chlorhexidine and draped in sterile manner. After injecting 10 mL of 1% lidocaine subcutaneously, a 22-gauge spinal needle was introduced under tunnel vision of the fluoroscope in the lower and posterior one third of right sacroiliac joint. After needle position confirmation by AP and crosstable lateral view, 1 mL of Isovue 200 contrast was injected. Contrast was noted to be into the sacroiliac joint. After repeat negative aspiration, 2.5 mL solution was injected which consists of 1.5 ml of 0.5% Ropivacaine mixed with 1 mL of 40 mg Depo-Medrol. In exactly same way left sacroiliac joint was injected with same amount of solution. After the procedure needles were taken out. Bandage applied. Disposition. Patient tolerated the procedure well. No complication. Patient was discharged home in stable condition.
--- NOTE | 2023-06-16 08:06 | FL ---
EXAMINATION TYPE: FL guided pain mgmt statistic DATE OF EXAM: 06/16/2023 FLUOROSCOPY Onesimo Si Inj 30sec fluoro time 0.[address] Rick Jenkins 4 images submitted.
[2023-06-16 08:10] VITALS: BP 124/79; PULSE 61; RESP 16
== END ==
LOC: ORPAIN 06:29
PROVIDERS: ATTEND Pain Medicine Interventional Pain Medicine
DX: M46.1 Sacroiliitis, not elsewhere classified (principal)
CPT/HCPCS: 27096; J1040; Q9967; J2795

== ENCOUNTER → 2023-07-13 | Outpatient (CLI) | payer BC ==
--- NOTE | 2023-07-13 12:55 | P.PAINPG ---
Subjective Progress Note Date: 07/13/23 Principal diagnosis: lumbar back pain Mr. Leo is a 58-year-old pleasant male came to the [facility] pain clinic for sacroiliac joint dysfunction, and lumbar back pain . Patient has ongoing pain for many years. Patient describes pain is aching, throbbing, constant type of pain. pain is not radiating to his lower extremities. He is actively working. After the left sacroiliac joint injection he had more than 60% pain relief for more than 3-4 weeks. As per the patient his pain levels are well tolerable after the intervention procedure. Patient rated pain levels are 2-3 out of 10 in severity. With the help of medications, intervention procedures pain levels are 2-3 out of 10 in severity. Activities making pain worse. Medications, resting, intervention procedures helping in relieving patient's pain. Patient pain some days better than others. Overall activities decreased secondary to pain. Because of the pain sometimes patient is feeling lack of sleep, interest, and energy. Denied any side effects with the medications. Denied any bowel or bladder problems at this time. Patient is not using any walking aids for walking support. Patient denies any suicidal or homicidal ideations intent or plan. Patient denies any auditory or visual hallucinations. Patient denied any red flag symptoms related to pain. 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 Sensation grossly intact Lower extremity: Normal strength, and decreased range of motion secondary to pain Lumbar spine: Paravertebral tenderness: positive Lumbar facet load test : positive Sacroiliac joint tenderness: on left side Positive Thigh thrust test: Positive left side SI joint compression test: Positive on left side Fabere test: Positive - Constitutional Constitutional Comment(s): 13 point review of symptoms negative except as mentioned in the history of present illness Assessment and Plan Assessment: Lumbar spondylosis without myelopathy Myofascial pain syndrome Left sacroiliac joint dysfunction Plan: #1 Diagnoses, prognosis, and multiple treatment options including but not limited to physical therapy, interventional therapy, adjunct medication therapy, narcotic medication, and surgical options were discussed with the patient. And all questions were answered to the patient's satisfaction. #2 treatment plan agreement : Patient was thoroughly discussed regarding the treatment options, alternatives, and importance of exercises as tolerated. Patient clearly understood. #3 Patient was counseled on importance of regular exercise. Including kimberli chi, aerobic exercises as tolerated. Which helps for chronic pain, and overall well- being. Patient also counseled regarding importance of weight control rolling chronic pain, and overall other health issues. By altering diet habits, minimizing sugar intake, and processed foods helps in minimizing Inflammation. Also discussed with the patient regarding intermittent fasting. #4 investigations: MAPS- reviewed , urine drug test- not done #5 diagnostic tests: none at this time #6 consultation : weight loss management # 7 interventional procedures:left side sacroiliac joint injection as needed in future. Procedure, complications, alternatives discussed with the patient. #8 medications none from the pain clinic #9 morphine milligrams equivalents dose ( MME) per day:0 from the pain clinic # 10 TENS unit's, and percussion massage device #11 disposition: scheduled to follow up with pain clinic in 12 weeks duration. Time with Patient: Less than 30 PQRS Measure Charge Sheet Measure #130: Documentation of Current Meds in Medical Chart: Patient's medications documented in chart Measure #226: Tobacco Use: Screen & Cessation Intervention: Pt not a tobacco user Measure #111: Pneumonia Vaccination: Pneumococcal vaccine NOT administered or previously given Measure #47: Advance Care Plan: Advance care planning discussed & documented, pt chose/unable to give Measure #412: Opioid Treatment Agreement: No documentation of signed opioid treatment agreement Measure #408: Opioid Therapy Follow-up Evaluation: Patient had f/u eval minimum every 3 months during opioid therapy Measure #317: Preventitive Care & Scrn High Bld Press & F/U: Pre-hypertensive or hypertensive BP documented, pt will f/u with PCP Measure #128: Body Mass Index (BMI) Screening & Follow-up: BMI documented ABOVE normal parameters - f/u documented Measure #131: Pain Assessment & Follow-up: Pain positive & plan documented Measure #431: Unhealthy Alcohol Use Preventative Care & Scrn: Patient not identified as an unhealthy alcohol user Mode of Arrival: Ambulatory - Pain Location Bilateral Lower Back Non-Pharmacological Interventions: Chiropractic Treatment, Heat, Ice, Physical Therapy Pharmacological Interventions: Epidural, PRN Medication, Topical Medication PQRS Narrative: Blood Pressure 124/80 Pain Intensity [Bilateral 2 Lower Back] Scale Used Numeric (1 - 10) Hx Alcohol Use (MH) No Home Medications: Ambulatory Orders Lisinopril-Hctz 20-12.5 mg [Zestoretic 20-12.5] 1 tab PO HS 04/21/18 Celecoxib [CeleBREX] 200 mg PO DAILY 11/27/22 Controlled Substance Measures - Controlled Substance Measures Is patient prescribed a controlled substance at discharge?: No
[2023-07-13 13:01] VITALS: BP 124/80; PULSE 62; RESP 16; TEMP 97.7
== END ==
LOC: PNWHC3 12:10
PROVIDERS: ATTEND Anesthesiology
DX: M47.816 Spondylosis without myelopathy or radiculopathy, lumbar region (principal); M79.18 Myalgia, other site; M53.3 Sacrococcygeal disorders, not elsewhere classified; Z91.09 Other allergy status, other than to drugs and biological substances; Z87.891 Personal history of nicotine dependence
CPT/HCPCS: 99211

== ENCOUNTER 2023-08-27 11:23 | Day surgery (SDC) | payer BC ==
[2023-08-25 12:31] VITALS: BMI 36.5
[2023-08-27] MEDS ORDERED: LACTATED RINGERS 1,000 ML IV SCH (12:05)
[2023-08-27 12:12] VITALS: RESP 16; TEMP 97.9
[2023-08-27] MEDS ORDERED: ROPIVACAINE 5MG/ML 20ML VIAL ONE (12:42)
[2023-08-27] MEDS ORDERED: methylPREDNISolone ACETATE 40 MG/ML 1 ML VIAL ONE (12:42)
[2023-08-27] MEDS ORDERED: IOPAMIDOL M200 10 ML VIAL ONE (12:42)
--- NOTE | 2023-08-27 12:50 | P.PCN ---
Date of Procedure: 08/27/23 Procedure(s) Performed: Procedure= Left sacroiliac joints steroid injection under fluoroscopy guidance (fluoroscopy image stored on file in the radiology Department ) Preoperative diagnosis= 1-sacroiliitis 2-sacroiliac joint dysfunction 3-lumbar facet arthropathy Postoperative diagnosis=Same as preop Diagnosis . Complication = none Condition= stable Anesthesia= local anesthesia with ropivacaine 0.5% 2 ml only Indication for the procedure= patient complaining of low back pain , examination was positive for severe tenderness over the left sacroiliac joints , and patient diagnosed with sacroiliitis, for this reason he was good candidate for sacroiliac joint steroid injection. Description of the procedure= procedure risk and benefits discussed with the patient, including but not limited, risk of infection and bleeding, and ALLERGIC reaction to the medication and not complete pain relief and patient agreed with the preceding patient taken to the operating room, placed in prone position or standard monitors applied to the patient then after induction of anesthesia back prepped with chlorhexidine 3 times , Then the left sacroiliac joint steroid injection done under strict sterile technique local infiltration of the skin and subcu interstitial at the location of the left sacroiliac joint then a 22-gauge Quincke Needle advanced slowly under fluoroscopy time placed in the left sacroiliac joint, needle placement confirmed with AP and oblique and lateral view then after appropriate needle placement confirmed, with the AP and oblique and lateral then after negative aspiration Isovue 200 1 mL injected showed arthropathy of the left sacroiliac joint, and after negative aspiration 0.5% Ropivacaine 2 mL and 40 mg of Depo- Medrol injected in the left sacroiliac joint after negative aspiration patient tolerated the procedure well that any complications and she will follow up in clinic 3 weeks
[2023-08-27 13:10] VITALS: BP 114/74; PULSE 60
--- NOTE | 2023-08-27 13:44 | FL ---
Fluoroscopy INDICATION: Pain FINDINGS: Fluoroscopy time: 8.1 seconds. Total dose area product (DAP) in uGy*m?, mGy*cm? (or similar): 0.09107 Images obtained: 3. IMPRESSION: 1. Documentation of fluoroscopy.
== END 2023-08-27 13:12 | disposition home or self-care (01) ==
LOC: ORPAIN 11:23
PROVIDERS: ATTEND Specialist
DX: M46.1 Sacroiliitis, not elsewhere classified (principal); M47.816 Spondylosis without myelopathy or radiculopathy, lumbar region
CPT/HCPCS: 27096; Q9966; J2795; J1010

== ENCOUNTER → 2024-05-02 | Outpatient (CLI) | payer BC ==
--- NOTE | 2024-05-02 15:31 | XR ---
EXAMINATION TYPE: XR sacroiliac joint comp 3 views BILAT DATE OF EXAM: 05/02/2024 3:16 PM COMPARISON: None CLINICAL INDICATION: Male, 59 years old with history of M46.1 Bilat sacroiliitis, , FINDINGS: At least moderate degenerative disc disease at L5-S1 with narrowed disc space with vacuum and sclerot ic endplates. SI joints appear symmetric and intact. There may be subtle early subarticular erosion a t vanessa inferior right SI joint. Small delineation to the arcuate lines of the sacrum. IMPRESSION: 1. Possible early subarticular erosions/sacroiliitis inferior right SI joint. 2. Moderate degenerative disc disease L5-S1. [facility], , 05/02/2024 3:28 PM
--- NOTE | 2024-05-02 15:53 | CT ---
EXAMINATION TYPE: CT lumbar spine wo con DATE OF EXAM: 05/02/2024 3:01 PM COMPARISON: None. CLINICAL INDICATION: Male, 59 years old with history of [id number] Low back pain, Chronic lower back pain, pain TECHNIQUE: CT of the lumbar spine is performed on a spiral scan at 3 mm thick sections. Reconstructed images are performed in the coronal and sagittal planes. Contrast used: mL of , (none if empty) Oral contrast used: (none if empty) CT DLP: 1587 mGycm, Automated exposure control for dose reduction was used. FINDINGS: T11-T12: No focal disc herniation or significant disc bulge is evident. No spinal canal stenosis or neural foraminal stenosis is present. T12-L1: No focal disc herniation or significant disc bulge is evident. No spinal canal stenosis or neural foraminal stenosis is present. L1-L2: No focal disc herniation or significant disc bulge is evident. No spinal canal stenosis or n eural foraminal stenosis is present L2-L3: Minimal disc bulge present. No focal disc herniation is evident. No spinal canal stenosis or n eural foraminal stenosis is present L3-L4: There is loss of disc height is also probably mild residual disc bulge is present. No spinal c anal stenosis is present. Vacuum disc phenomenon is present. Moderate foraminal narrowing is present. L4-L5: Mild disc bulge has mild anterior thecal sac contact. Disc space narrowing is present. No AP s jose canal stenosis is present. Moderate bilateral foraminal narrowing is present. L5-S1: Disc space narrowing is present. Vacuum disc phenomenon is present. Posterior endplate spurrin g from S1 is evident. No spinal canal stenosis is present. Mild bilateral foraminal narrowing is pres ent. Vertebral alignment appears normal. IMPRESSION: 1. Moderate foraminal narrowing at L4-5 bilaterally and L3-4. 2. Vacuum disc phenomenon disc space narrowing L3-4 through L5-S1. [facility], , 05/02/2024 3:51 PM
== END | disposition home or self-care (01) ==
LOC: RADCTMAIN 14:32
PROVIDERS: ATTEND Orthopaedic Surgery
DX: M51.370 Other intervertebral disc degeneration, lumbosacral region with discogenic back pain only (principal); M48.061 Spinal stenosis, lumbar region without neurogenic claudication
CPT/HCPCS: 72131; 72202